=== PATIENT | male | born 1990 | race Two or more races ===

== ENCOUNTER 2018-11-05 12:04 | Inpatient (IN) | payer MEDICAID ==
--- NOTE | 2018-11-05 12:35 | ED Physician Chart ---
ED Chief Complaint/HPI - Patient Information Date Seen:: 11/05/18 Time Seen:: 12:16 Chief Complaint:: right inquinal pain History of Present Illness:: this is a 28 yo male who was working at home and while doing some heavy lifting he got sudden right inquinal pain. he denies nausea, vomiting and diarrhea. he denies any medical problems or previous surgeries. Allergies:: Allergies Allergy/AdvReac Type Severity Reaction Status Date / Time No Known Allergies Allergy Verified 11/05/18 12:10 Vitals:: Vital Signs - 8 hr 11/05/18 12:10 Temp 97.8 F HR 54 RR 16 BP 127/64 O2 Sat % 98 Historian:: Patient Review:: Nurse's Note Reviewed ED Review of Systems - Review of Systems General/Constitutional: No fever, No chills, No weight loss, No weakness, No diaphoresis, No edema, No loss of appetite Skin: No skin lesions, No rash, No bruising Head: No headache, No light-headedness Eyes: No loss of vision, No pain, No diplopia ENT: No earache, No nasal drainage, No sore throat, No tinnitus Neck: No neck pain, No swelling, No thyromegaly, No stiffness, No mass noted Cardio Vascular: No chest pain, No palpitations, No PND, No orthopnea, No edema Pulmonary: No SOB, No cough, No sputum, No wheezing GI: No nausea, No vomiting, No diarrhea, Pain (right inquinal area pain), No melena, No hematochezia, No constipation, No hematemesis G/U: No dysuria, No frequency, No hematuria Musculoskeletal: No bone or joint pain, No back pain, No muscle pain Endocrine: No polyuria, No polydipsia Psychiatric: No prior psych history, No depression, No anxiety, No suicidal ideation Hematopoietic: No bruising, No lymphadenopathy Allergic/Immuno: No urticaria, No angioedema Neurological: No syncope, No focal symptoms, No weakness, No paresthesia, No headache, No seizure, No dizziness, No confusion, No vertigo ED Past Medical History - Past Medical History Obtainable: Yes Past Medical History: No significant medical hx Family History: None Social History: Non Smoker, No Alcohol, No Drug Use, Employed Surgical History: None Psychiatricy History: None Medication: Reviewed ED Physical Exam - Physical Examination General/Constitutional: Awake, Well-developed, well-nourished, Alert, No distress, GCS 15, Non-toxic appearing, Ambulatory Head: Atraumatic Eyes: Lids, conjuctiva normal, PERRL, EOMI Skin: Nl inspection, No rash, No skin lesions, No ecchymosis, Well hydrated, No lymphadenopathy ENMT: External ears, nose nl, Nasal exam nl, Lips, teeth, gums nl Neck: Nontender, Full ROM w/o pain, No JVD, No nuchal rigidity, No bruit, No mass, No stridor Respiratory: Nl effort/Exclusion, Clear to Auscultation, No Wheeze/Rhonchi/Rales Cardio Vascular: RRR, No murmur, gallop, rubs, NL S1 S2 GI: No tenderness/rebounding/guarding, No organomegaly, Normal BS's, Nondistended, No mass/bruits, No McBurney tenderness Other GI comments:: right inquinal hernia non reducible and tender. : No CVA tenderness Extremities: No tenderness or effusion, Full ROM, normal strength in all extremities, No edema, Normal digits & nails Neuro/Psych: Alert/oriented, DTR's symmetric, Normal sensory exam, Normal motor strength, Judgement/insight normal, Mood normal, Normal gait, No focal deficits Misc: Normal back, No paraspinal tenderness ED Labs/Radiology/EKG Results - Lab Results Results: Abnormal Lab Results 11/05/18 11/05/18 11/05/18 12:53 12:53 12:53 WBC 12.6 H RBC 5.14 Hgb 15.6 Hct 46.6 MCV 90.8 MCH 30.3 H MCHC Differential 33.3 RDW 12.7 Plt Count 257 MPV 7.9 Neutrophils % 83.1 H Lymphocytes % 11.0 L Monocytes % 5.2 Eosinophils % 0.5 Basophils % 0.2 PT 12.1 H INR 1.17 PTT (Actin FS) 24.0 L Sodium 138 Potassium 3.8 Chloride 103 Carbon Dioxide 26.1 Anion Gap 12.7 BUN 11 Creatinine 0.8 Est GFR ( Amer) > 60.0 Est GFR (Non-Af Amer) > 60.0 BUN/Creatinine Ratio 13.8 Glucose 123 H Calcium 9.1 Total Bilirubin 1.1 H AST 22 ALT 19 Alkaline Phosphatase 73 Total Protein 7.0 Albumin 4.6 Globulin 2.4 Albumin/Globulin Ratio 1.9 H - Radiology Results Results: ct scan of abdomen = right inquinal hernia. ED Assessment - Assessment General Assessment: incarcerated right inquinal hernia ED Septic Shock - . Is Septic Shock (SBP<90, OR Lactate>4 mmol\L) present?: No - <6hrs of presentation: Vital Signs: Vital Signs - 8 hr 11/05/18 12:10 Temp 97.8 F HR 54 RR 16 BP 127/64 O2 Sat % 98 ED Reassessment (Disposition) - Reassessment Reassessment Condition:: Improved - Diagnosis Diagnosis:: incarcerated right inquinal hernia - Patient Disposition Discharge/Transfer:: Acute Care w/in this hosp Admitting Medical Physician:: Martin Estrada Condition at Disposition:: Improved
--- NOTE | 2018-11-05 12:49 | Diagnostic Imaging Report ---
CT scan of the abdomen and pelvis without intravenous contrast History: Right inguinal pain Total DLP equals 361 CTDI equals 6.9 Axial sections were obtained from the xiphoid process down to the pubic symphysis. The liver demonstrates a normal size and contour. No focal lesions are seen. The spleen appears normal. No abnormalities are seen in the region of the pancreas. The kidneys appear normal bilaterally. There is evidence for large amount of fecal content throughout the colon. The exam of the pelvis demonstrates preservation of normal fat planes. There is evidence for right inguinal hernia most likely with mesentery and small bowel loops. There is distention small bowel loops suggestive of mild ileus. Impression: Mild ileus. Right inguinal hernia extending into the right scrotum with mesentery and small bowel loops in the hernia sac Constipation.
[2018-11-05 13:01] LABS: % BASOPHILS 0.2 % (0.0-2.0); % EOSINOPHILS 0.5 % (0.0-5.0); % MONOCYTES 5.2 % (2.0-10.0); % NEUTROPHILS 83.1 % (40.0-80.0); EOSINOPHILE ABSOLUTE 0.1 Th/cmm (0.1-0.4); HEMATOCRIT 46.6 % (41.0-60); HEMOGLOBIN 15.6 gm/dL (12-16); LYMPHOCYTE ABSOLUTE 1.4 Th/cmm (1.5-3.0); MEAN CELL VOLUME 90.8 fl (80-99); MEAN CORPUSCULAR HEMOGLOBIN 30.3 pg (26.0-30.0); MEAN CORPUSCULAR HGB CONC 33.3 pg (28.0-36.0); MEAN PLATELET VOLUME 7.9 fl; MONOCYTE ABSOLUTE 0.7 Th/cmm (0.3-1.0); NEUTROPHILE ABSOLUTE 10.4 Th/cmm (1.8-8.0); PLATELET COUNT 257 Th/cmm (150-400); RED BLOOD COUNT 5.14 Mil/cmm (4.30-5.70); RED CELL DISTRIBUTION WIDTH 12.7 % (11.5-20.0); WHITE BLOOD COUNT 12.6 Th/cmm (4.8-10.8)
[2018-11-05 13:15] LABS: ALB/GLOB RATIO 1.9 (1.0-1.8); ALBUMIN 4.6 gm/dL (4.2-5.5); ALKALINE PHOSPHATASE 73 U/L (34-104); ANION GAP 12.7 (7.0-16.0); BILIRUBIN,TOTAL 1.1 mg/dL (0.3-1.0); BUN - UREA NITROGEN 11 mg/dL (7-25); CALCIUM SERUM 9.1 mg/dL (8.6-10.3); CARBON DIOXIDE 26.1 mEq/L (21.0-31.0); CHLORIDE 103 mEq/L (98-107); CREATININE - SERUM 0.8 mg/dL (0.7-1.3); GFR AFRICAN-AMERICAN > 60.0 ml/min (>90); GFR NON AFRICAN-AMERICAN > 60.0 ml/min; GLUCOSE 123 mg/dL (70-105); POTASSIUM SERUM 3.8 mEq/L (3.5-5.1); SGOT 22 U/L (13-39); SGPT/ALT 19 U/L (7-52); SODIUM SERUM 138 mEq/L (136-145)
[2018-11-05 13:16] LABS: INR 1.17 (0.5-1.4); PROTHROMBIN TIME (TEST) 12.1 SECONDS (9.5-11.5)
[2018-11-05] MEDS ORDERED: Sodium Chloride 0.9% 1,000 ML IV ONE (13:32)
[2018-11-05] MEDS ORDERED: HYDROmorphone 1 mg/mL 1mL Syr IVP STA (13:34)
[2018-11-05] MEDS ORDERED: HYDROmorphone 1 mg/mL 1mL Syr ONE (13:50)
[2018-11-05 14:06] LABS: URINE SOURCE CLEAN C
[2018-11-05 14:11] LABS: URINE BILIRUBIN NEGATIVE (NEGATIVE); URINE BLOOD NEGATIVE (NEGATIVE); URINE GLUCOSE (UA) NEGATIVE (NEGATIVE); URINE KETONE NEGATIVE (NEGATIVE); URINE LEUKOCYTE ESTERASE NEGATIVE (NEGATIVE); URINE NITRATE NEGATIVE (NEGATIVE); URINE PH 8.5 (4.6 - 8.0); URINE PROTEIN NEGATIVE (NEGATIVE); URINE UROBILINOGEN 0.2 E.U./dL (0.2 - 1.0)
[2018-11-05 14:16] LABS: URINE CLARITY CLEAR (CLEAR); URINE COLOR YELLOW; URINE MICROSCOPIC INDICATED? YES
[2018-11-05 14:48] LABS: URINE BACTERIA FEW /hpf (NONE SEEN); URINE EPITHELIAL CELLS FEW /lpf (FEW); URINE RBC 0-2 /hpf (0-5)
[2018-11-05 15:48] VITALS: BP 129/67
[2018-11-05] MEDS: Sodium Chloride 0.9% 1,000 ML IV SCH (15:55)
--- NOTE | 2018-11-05 17:34 | History and Physical ---
History of Present Illness - HPI Chief Complaint: Right inguinal and testicular pain HPI: Patient refer that 2 years ago he new that he had an right inguinal hernia, but never cause pain. Today while he was working he felt a sharp pain in right inguinal area and came to ER. Abdominal CT showed Mild ileus and inguinal hernia with some intestines in right testicle. 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 Hx GI: Report: No Pertinent Hx Psych: Report: No Pertinent Hx Musculoskeletal: Report: No Pertinent Hx Rheumatologic: Report: No pertinent Hx Infectious Disease: Report: No Pertinent Hx Renal/: Report: No Pertinent Hx Endocrine: Report: No Pertinent Hx Dermatology: Report: No Pertinent Hx - Past Surgical History Past Surgical History: Other (Hx of right inguinal hernia) Family Medical History - Family Member Mother History Unknown: Yes Social History Smoke: No Alcohol: Occassional Drugs: None Lives: With Family Domestic Violence: Negative - Medications Home Medications: Home Medication Medication Instructions Recorded Type NK [No Home Meds] 11/05/18 History - Allergies Allergies/Adverse Reactions: Allergies Allergy/AdvReac Type Severity Reaction Status Date / Time No Known Allergies Allergy Verified 11/05/18 12:10 Review of Systems - Review of Systems Constitutional: Report: No Significant Eyes: Report: No Significant ENT: Report: No Significant Respiratory: Report: No Significant Cardiovascular: Report: No Significant Gastrointestinal: Report: Abdominal Pain Genitourinary: Report: Other (Pain in right testicle) Musculoskeletal: Report: No Significant Skin: Report: No Significant Neurological: Report: No Significant Physical Exam - Physical Exam HEENT: Report: Ears Nose Throat within normal limits Neck: Report: Within normal limits Cardiovascular Systems: Report: Regular, Rate and Rhythm Respiratory: Report: Breath Sounds are within normal limits Abdomen: Report: Non-tender to palpation, Other (Pain at palpation in right inguinal area) Back: Report: Inspection of back is within normal limits. Extremities: Report: Non-tender to palpation. Skin: Report: Color of skin is within normal limits Neuro/Psych: Report: Mood affect is within normal limits - Lab Results All Lab Results last 24 hours: Laboratory Results - last 24 hr 11/05/18 11/05/18 11/05/18 12:53 12:53 12:53 WBC 12.6 H RBC 5.14 Hgb 15.6 Hct 46.6 MCV 90.8 MCH 30.3 H MCHC Differential 33.3 RDW 12.7 Plt Count 257 MPV 7.9 Neutrophils % 83.1 H Lymphocytes % 11.0 L Monocytes % 5.2 Eosinophils % 0.5 Basophils % 0.2 PT 12.1 H INR 1.17 PTT (Actin FS) 24.0 L Sodium 138 Potassium 3.8 Chloride 103 Carbon Dioxide 26.1 Anion Gap 12.7 BUN 11 Creatinine 0.8 Est GFR ( Amer) > 60.0 Est GFR (Non-Af Amer) > 60.0 BUN/Creatinine Ratio 13.8 Glucose 123 H Calcium 9.1 Total Bilirubin 1.1 H AST 22 ALT 19 Alkaline Phosphatase 73 Total Protein 7.0 Albumin 4.6 Globulin 2.4 Albumin/Globulin Ratio 1.9 H TSH Urine Source Urine Color Urine Clarity Urine pH Ur Specific [place] Urine Protein Urine Glucose (UA) Urine Ketones Urine Blood Urine Nitrate Urine Bilirubin Urine Urobilinogen Ur Leukocyte Esterase Urine RBC Urine WBC Ur Epithelial Cells Urine Bacteria Urine Mucus 11/05/18 11/05/18 12:53 13:50 WBC RBC Hgb Hct MCV MCH MCHC Differential RDW Plt Count MPV Neutrophils % Lymphocytes % Monocytes % Eosinophils % Basophils % PT INR PTT (Actin FS) Sodium Potassium Chloride Carbon Dioxide Anion Gap BUN Creatinine Est GFR ( Amer) Est GFR (Non-Af Amer) BUN/Creatinine Ratio Glucose Calcium Total Bilirubin AST ALT Alkaline Phosphatase Total Protein Albumin Globulin Albumin/Globulin Ratio TSH 1.90 Urine Source CLEAN C Urine Color YELLOW Urine Clarity CLEAR Urine pH 8.5 Ur Specific [place] 1.010 Urine Protein NEGATIVE Urine Glucose (UA) NEGATIVE Urine Ketones NEGATIVE Urine Blood NEGATIVE Urine Nitrate NEGATIVE Urine Bilirubin NEGATIVE Urine Urobilinogen 0.2 Ur Leukocyte Esterase NEGATIVE Urine RBC 0-2 H Urine WBC 2-5 Ur Epithelial Cells FEW Urine Bacteria FEW Urine Mucus FEW - Assessment Assessment: Current Active Problems Problem Status Onset RIGHT LOWER QUADRANT PAIN Acute Patient is awake, alert, calm, in no acute distress. Dx: Right inguinal hernia - Plan Plan: Patient in IV NS, Pain control, NPO. Already was seen by surgery. Surgery will be done today. Will continue to monitor
[2018-11-05] MEDS ORDERED: Bupivacaine 0.25% W/Ep 10 mL Vial INJ ONE (18:50)
[2018-11-05] MEDS ORDERED: Bupivacaine 0.5% W/Ep 10 mL Vial INJ ONE (18:50)
[2018-11-05] MEDS ORDERED: fentaNYL Citrate 100 mcg/2mL Vial ONE (19:15)
[2018-11-05] MEDS ORDERED: Propofol **SURGERY USE ONLY** 20 ML IV ONE (19:24)
[2018-11-05] MEDS ORDERED: Neostigmine 10mg/10mL Vial ONE (19:25)
--- NOTE | 2018-11-05 20:19 | Consultation ---
Consult Note - Consult Note Service Date: 11/05/18 Referring Physician: Martin Estrada Consult Note: PHYSICIAN Consultation Note: Date of Admission: 11/05/18 Purpose of Consultation: incarcerated right inguinal hernia Chief Complaint: intense pain and bulging from the right groin at work today History of Present Illness: Patient VENICE RESENDEZ was admitted to [facility] with INCARCERATED INGUINAL HERNIA. Past Medical History: Allergies Allergy/AdvReac Type Severity Reaction Status Date / Time No Known Allergies Allergy Verified 11/05/18 12:10 Vital Signs Temp 97.3 F 11/05/18 16:20 Pulse 62 11/05/18 16:20 Resp 16 11/05/18 16:20 BP 129/67 11/05/18 16:20 Pulse Ox 100 11/05/18 16:20 Intake & Output 11/05/18 11/05/18 11/06/18 06:59 18:59 06:59 Intake Total 349.65 Balance 349.65 Weight (lbs) 148 lb Intake: Intake, IV Amount 349.65 Sodium Chloride 0.9% 1, 349.65 000 ml @ Wide Open IV . Q0M ONE Rx#:[id number] Other: # Voids 2 # Bowel Movements 0 Weight Source Bedscale Laboratory Results - last 24 hr 11/05/18 11/05/18 11/05/18 12:53 12:53 12:53 WBC 12.6 H RBC 5.14 Hgb 15.6 Hct 46.6 MCV 90.8 MCH 30.3 H MCHC Differential 33.3 RDW 12.7 Plt Count 257 MPV 7.9 Neutrophils % 83.1 H Lymphocytes % 11.0 L Monocytes % 5.2 Eosinophils % 0.5 Basophils % 0.2 PT 12.1 H INR 1.17 PTT (Actin FS) 24.0 L Sodium 138 Potassium 3.8 Chloride 103 Carbon Dioxide 26.1 Anion Gap 12.7 BUN 11 Creatinine 0.8 Est GFR ( Amer) > 60.0 Est GFR (Non-Af Amer) > 60.0 BUN/Creatinine Ratio 13.8 Glucose 123 H Calcium 9.1 Total Bilirubin 1.1 H AST 22 ALT 19 Alkaline Phosphatase 73 Total Protein 7.0 Albumin 4.6 Globulin 2.4 Albumin/Globulin Ratio 1.9 H TSH Urine Source Urine Color Urine Clarity Urine pH Ur Specific [place] Urine Protein Urine Glucose (UA) Urine Ketones Urine Blood Urine Nitrate Urine Bilirubin Urine Urobilinogen Ur Leukocyte Esterase Urine RBC Urine WBC Ur Epithelial Cells Urine Bacteria Urine Mucus 11/05/18 11/05/18 12:53 13:50 WBC RBC Hgb Hct MCV MCH MCHC Differential RDW Plt Count MPV Neutrophils % Lymphocytes % Monocytes % Eosinophils % Basophils % PT INR PTT (Actin FS) Sodium Potassium Chloride Carbon Dioxide Anion Gap BUN Creatinine Est GFR ( Amer) Est GFR (Non-Af Amer) BUN/Creatinine Ratio Glucose Calcium Total Bilirubin AST ALT Alkaline Phosphatase Total Protein Albumin Globulin Albumin/Globulin Ratio TSH 1.90 Urine Source CLEAN C Urine Color YELLOW Urine Clarity CLEAR Urine pH 8.5 Ur Specific [place] 1.010 Urine Protein NEGATIVE Urine Glucose (UA) NEGATIVE Urine Ketones NEGATIVE Urine Blood NEGATIVE Urine Nitrate NEGATIVE Urine Bilirubin NEGATIVE Urine Urobilinogen 0.2 Ur Leukocyte Esterase NEGATIVE Urine RBC 0-2 H Urine WBC 2-5 Ur Epithelial Cells FEW Urine Bacteria FEW Urine Mucus FEW Home Medication Medication Instructions Recorded Type NK [No Home Meds] 11/05/18 History Current Medications Generic Name Dose Route Start Last Admin Trade Name Freq PRN Reason Stop Dose Admin Hydromorphone HCl 1 mg 11/05/18 14:46 Dilaudid IVP 01/04/19 14:45 Q6HR PRN Pain (Severe) Sodium Chloride 1,000 mls @ 75 mls/hr 11/05/18 15:29 11/05/18 15:55 Nacl 0.9% IV 01/04/19 15:28 75 mls/hr .[id number] DAYNA Administration Review of Systems: A 12 point ROS was reviewed with the pertinent positive and negatives noted in the HPI. Social History Smoking Status Never smoker Family Medical History Family Medical History Start: 11/05/18 14: 49 Freq: ONCE Status: Active Protocol: Document 11/05/18 14:49 ELTON (Rec: 11/05/18 15:34 ELTON AHSAN-WOW -MS6) Family Medical History Mother History Unknown Yes Physical Exam: General: HEENT: Neck: Cardio: Respiratory: Abdominal: pain in the right groin with swelling Genital/Urinary: Extremities: Neurological: Assessment: incarcerated right inguinal hernia Plan: Repair of incarcerated ingruinal hernia on the right side Signed, Sasha Forde 6
--- NOTE | 2018-11-05 20:46 | Operative Report ---
DATE OF SURGERY: PREOPERATIVE DIAGNOSIS: A 28-year-old presents with acute incarcerated right Inguinal hernia. POSTOPERATIVE DIAGNOSIS: Reduced right inguinal hernia. PROCEDURE: Repair of reducible right inguinal hernia with medium PerFix plug from [employer]. ANESTHESIA: This was done under general anesthesia with Dr. Castro. DESCRIPTION OF PROCEDURE: Under general anesthesia, the patient was prepped and draped in usual sterile fashion. Incision was made with paralleling the inguinal ligament and brought down to the external oblique fascia. The spermatic cord was protected and the hernia sac was from the spermatic cord ligated high. The medium PerFix plug was placed in the triangle of Hesselbach and secured to the conjoined tendon and reflected edge of Poupart's ligament. We then placed a patch over that repair, secured there with 2-0 Prolene suture, and then the 2-0 Vicryl was used for the Stephanie's fascia. We made sure there was a little bit of lucency at the level of the spermatic cord, so that it would not be too tight and we then closed the skin with 4-0 Vicryl subcuticular stitch. Steri-Strip and benzoin was applied. A 20 mL of Marcaine 0.25% with epinephrine was used, 10 mL preoperatively and 10 mL postop at the end of the procedure. The patient tolerated the procedure well. All instrument, sponge count were correct. JOB# [id number]
[2018-11-06] MEDS: HYDROmorphone 1 mg/mL 1mL Syr IVP PRN ×2 (01:33→10:21)
[2018-11-06] MEDS ORDERED: HYDROmorphone 1 mg/mL 1mL Syr IVP ONE (05:00)
[2018-11-06] MEDS: Sodium Chloride 0.9% 1,000 ML IV SCH ×2 (06:42→23:04)
[2018-11-06] MEDS: APAP/Oxycodone 5/325mg Tab PO PRN ×2 (08:40→20:48)
--- NOTE | 2018-11-06 09:43 | General Progress Note ---
Subjective - Review of Systems Service Date: 11/06/18 Subjective: I have pain Objective - Results Result Diagrams: 11/05/18 12:53 11/05/18 12:53 Recent Labs: Laboratory Last Values WBC 12.6 Th/cmm (4.8-10.8) H 11/05/18 12:53 RBC 5.14 Mil/cmm (4.30-5.70) 11/05/18 12:53 Hgb 15.6 gm/dL (12-16) 11/05/18 12:53 Hct 46.6 % (41.0-60) 11/05/18 12:53 MCV 90.8 fl (80-99) 11/05/18 12:53 MCH 30.3 pg (26.0-30.0) H 11/05/18 12:53 MCHC Differential 33.3 pg (28.0-36.0) 11/05/18 12:53 RDW 12.7 % (11.5-20.0) 11/05/18 12:53 Plt Count 257 Th/cmm (150-400) 11/05/18 12:53 MPV 7.9 fl 11/05/18 12:53 Neutrophils % 83.1 % (40.0-80.0) H 11/05/18 12:53 Lymphocytes % 11.0 % (20.0-50.0) L 11/05/18 12:53 Monocytes % 5.2 % (2.0-10.0) 11/05/18 12:53 Eosinophils % 0.5 % (0.0-5.0) 11/05/18 12:53 Basophils % 0.2 % (0.0-2.0) 11/05/18 12:53 PT 12.1 SECONDS (9.5-11.5) H 11/05/18 12:53 INR 1.17 (0.5-1.4) 11/05/18 12:53 PTT (Actin FS) 24.0 SECONDS (26.0-38.0) L 11/05/18 12:53 Sodium 138 mEq/L (136-145) 11/05/18 12:53 Potassium 3.8 mEq/L (3.5-5.1) 11/05/18 12:53 Chloride 103 mEq/L (98-107) 11/05/18 12:53 Carbon Dioxide 26.1 mEq/L (21.0-31.0) 11/05/18 12:53 Anion Gap 12.7 (7.0-16.0) 11/05/18 12:53 BUN 11 mg/dL (7-25) 11/05/18 12:53 Creatinine 0.8 mg/dL (0.7-1.3) 11/05/18 12:53 Est GFR ( Amer) > 60.0 ml/min (>90) 11/05/18 12:53 Est GFR (Non-Af Amer) > 60.0 ml/min 11/05/18 12:53 BUN/Creatinine Ratio 13.8 11/05/18 12:53 Glucose 123 mg/dL (70-105) H 11/05/18 12:53 Calcium 9.1 mg/dL (8.6-10.3) 11/05/18 12:53 Total Bilirubin 1.1 mg/dL (0.3-1.0) H 11/05/18 12:53 AST 22 U/L (13-39) 11/05/18 12:53 ALT 19 U/L (7-52) 11/05/18 12:53 Alkaline Phosphatase 73 U/L (34-104) 11/05/18 12:53 Total Protein 7.0 gm/dL (6.0-8.3) 11/05/18 12:53 Albumin 4.6 gm/dL (4.2-5.5) 11/05/18 12:53 Globulin 2.4 gm/dL 11/05/18 12:53 Albumin/Globulin Ratio 1.9 (1.0-1.8) H 11/05/18 12:53 TSH 1.90 uIU/ml (0.34-5.60) 11/05/18 12:53 Urine Source CLEAN C 11/05/18 13:50 Urine Color YELLOW 11/05/18 13:50 Urine Clarity CLEAR (CLEAR) 11/05/18 13:50 Urine pH 8.5 (4.6 - 8.0) 11/05/18 13:50 Ur Specific [place] 1.010 (1.005-1.030) 11/05/18 13:50 Urine Protein NEGATIVE mg/dL (NEGATIVE) 11/05/18 13:50 Urine Glucose (UA) NEGATIVE mg/dL (NEGATIVE) 11/05/18 13:50 Urine Ketones NEGATIVE mg/dL (NEGATIVE) 11/05/18 13:50 Urine Blood NEGATIVE (NEGATIVE) 11/05/18 13:50 Urine Nitrate NEGATIVE (NEGATIVE) 11/05/18 13:50 Urine Bilirubin NEGATIVE (NEGATIVE) 11/05/18 13:50 Urine Urobilinogen 0.2 E.U./dL (0.2 - 1.0) 11/05/18 13:50 Ur Leukocyte Esterase NEGATIVE (NEGATIVE) 11/05/18 13:50 Urine RBC 0-2 /hpf (0-5) H 11/05/18 13:50 Urine WBC 2-5 /hpf (0-5) 11/05/18 13:50 Ur Epithelial Cells FEW /lpf (FEW) 11/05/18 13:50 Urine Bacteria FEW /hpf (NONE SEEN) 11/05/18 13:50 Urine Mucus FEW /lpf (FEW) 11/05/18 13:50 - Physical Exam Vitals and I&O: Vital Signs Temp 98.6 F 11/06/18 08:00 Pulse 62 11/06/18 08:00 Resp 18 11/06/18 08:00 BP 98/54 11/06/18 08:00 Pulse Ox 97 11/06/18 08:00 Intake & Output 11/05/18 11/06/18 11/06/18 18:59 06:59 18:59 Intake Total 349.65 340 Output Total 400 Balance 349.65 -60 Weight (lbs) 67.132 kg 67.132 kg Intake: Intake, IV Amount 349.65 Sodium Chloride 0.9% 1, 349.65 000 ml @ Wide Open IV . Q0M ONE Rx#:[id number] Oral 340 Output: Urine 400 Other: # Voids 2 # Bowel Movements 0 0 Weight Source Bedscale Bedscale Active Medications: Current Medications Hydromorphone HCl (Dilaudid) 1 mg IVP Q6HR PRN PRN Reason: Pain (Severe) Stop: 01/04/19 14:45 Last Admin: 11/06/18 01:33 Dose: 1 mg Sodium Chloride (Nacl 0.9%) 1,000 mls @ 75 mls/hr IV .[id number] DAYNA Stop: 01/04/19 15:28 Last Admin: 11/06/18 06:42 Dose: Not Given Ondansetron HCl (Zofran) 4 mg IV Q6H PRN PRN Reason: Nausea / Vomiting Stop: 01/05/19 04:39 Oxycodone/Acetaminophen (Percocet 5/325mg Oral Tab) 1 tab PO Q4H PRN PRN Reason: MODERATE PAIN Stop: 01/05/19 04:37 Last Admin: 11/06/18 08:40 Dose: 1 tab General: Alert, Oriented x3, Cooperative, Mild distress HEENT: Atraumatic Neck: Supple Cardiovascular: Regular rate Lungs: Clear to auscultation Abdomen: Bowel sounds, Distended, Other (Pain in rigth lower abdomen, surgical wound clean) Extremities: Other (No edema) Neurological: Normal gait Skin: Other (Warm and dry) Psych/Mental Status: Mental status NL Assessment/Plan - Problem List Patient Problems: All Active Problems RIGHT LOWER QUADRANT PAIN (Acute) - Assessment Assessment: Current Active Problems Problem Status Onset RIGHT LOWER QUADRANT PAIN Acute Patient is awake, alert, calm, in some distress due to pain. Patient is passing was. Dx: S/P Right inguinal hernia - Plan Plan: Patient in IV NS, Pain control, liquid diet, Surgery was done. Will continue to monitor
[2018-11-06 10:08] LABS: % BASOPHILS 0.3 % (0.0-2.0); % EOSINOPHILS 0.8 % (0.0-5.0); % LYMPHOCYTES 13.4 % (20.0-50.0); % MONOCYTES 8.6 % (2.0-10.0); % NEUTROPHILS 76.9 % (40.0-80.0); EOSINOPHILE ABSOLUTE 0.1 Th/cmm (0.1-0.4); HEMATOCRIT 42.4 % (41.0-60); HEMOGLOBIN 14.1 gm/dL (12-16); LYMPHOCYTE ABSOLUTE 1.4 Th/cmm (1.5-3.0); MEAN CELL VOLUME 91.4 fl (80-99); MEAN CORPUSCULAR HEMOGLOBIN 30.3 pg (26.0-30.0); MEAN CORPUSCULAR HGB CONC 33.2 pg (28.0-36.0); MEAN PLATELET VOLUME 8.3 fl; MONOCYTE ABSOLUTE 0.9 Th/cmm (0.3-1.0); PLATELET COUNT 243 Th/cmm (150-400); RED BLOOD COUNT 4.63 Mil/cmm (4.30-5.70); RED CELL DISTRIBUTION WIDTH 12.9 % (11.5-20.0); WHITE BLOOD COUNT 10.4 Th/cmm (4.8-10.8)
[2018-11-06 10:15] LABS: ALB/GLOB RATIO 1.9 (1.0-1.8); ALBUMIN 3.7 gm/dL (4.2-5.5); ALKALINE PHOSPHATASE 62 U/L (34-104); ANION GAP 10.2 (7.0-16.0); BILIRUBIN,TOTAL 1.9 mg/dL (0.3-1.0); BUN - UREA NITROGEN 11 mg/dL (7-25); CALCIUM SERUM 8.5 mg/dL (8.6-10.3); CARBON DIOXIDE 26.3 mEq/L (21.0-31.0); CHLORIDE 104 mEq/L (98-107); CREATININE - SERUM 0.8 mg/dL (0.7-1.3); GFR AFRICAN-AMERICAN > 60.0 ml/min (>90); GFR NON AFRICAN-AMERICAN > 60.0 ml/min; GLUCOSE 105 mg/dL (70-105); POTASSIUM SERUM 3.5 mEq/L (3.5-5.1); SGOT 21 U/L (13-39); SGPT/ALT 14 U/L (7-52); SODIUM SERUM 137 mEq/L (136-145); TOTAL PROTEIN,SERUM 5.7 gm/dL (6.0-8.3)
[2018-11-06] MEDS ORDERED: Magnesium Hydroxide (MOM) 30 mL UDC PO SCH (21:00)
[2018-11-07] MEDS: APAP/Oxycodone 5/325mg Tab PO PRN ×2 (00:22→13:41)
[2018-11-07 06:55] LABS: % BASOPHILS 0.5 % (0.0-2.0); % EOSINOPHILS 2.1 % (0.0-5.0); % LYMPHOCYTES 21.5 % (20.0-50.0); % NEUTROPHILS 65.9 % (40.0-80.0); EOSINOPHILE ABSOLUTE 0.2 Th/cmm (0.1-0.4); HEMATOCRIT 43.5 % (41.0-60); HEMOGLOBIN 14.5 gm/dL (12-16); MEAN CELL VOLUME 91.5 fl (80-99); MEAN CORPUSCULAR HEMOGLOBIN 30.6 pg (26.0-30.0); MEAN CORPUSCULAR HGB CONC 33.4 pg (28.0-36.0); MEAN PLATELET VOLUME 8.7 fl; MONOCYTE ABSOLUTE 0.9 Th/cmm (0.3-1.0); NEUTROPHILE ABSOLUTE 6.1 Th/cmm (1.8-8.0); PLATELET COUNT 232 Th/cmm (150-400); RED BLOOD COUNT 4.76 Mil/cmm (4.30-5.70); RED CELL DISTRIBUTION WIDTH 12.6 % (11.5-20.0); WHITE BLOOD COUNT 9.2 Th/cmm (4.8-10.8)
[2018-11-07 06:56] LABS: ALB/GLOB RATIO 1.8 (1.0-1.8); ALBUMIN 3.7 gm/dL (4.2-5.5); ALKALINE PHOSPHATASE 58 U/L (34-104); ANION GAP 8.1 (7.0-16.0); BILIRUBIN,TOTAL 1.7 mg/dL (0.3-1.0); BUN - UREA NITROGEN 10 mg/dL (7-25); CALCIUM SERUM 8.7 mg/dL (8.6-10.3); CHLORIDE 106 mEq/L (98-107); CREATININE - SERUM 0.9 mg/dL (0.7-1.3); GFR AFRICAN-AMERICAN > 60.0 ml/min (>90); GFR NON AFRICAN-AMERICAN > 60.0 ml/min; GLUCOSE 89 mg/dL (70-105); POTASSIUM SERUM 4.1 mEq/L (3.5-5.1); SGOT 21 U/L (13-39); SGPT/ALT 14 U/L (7-52); SODIUM SERUM 140 mEq/L (136-145); TOTAL PROTEIN,SERUM 5.8 gm/dL (6.0-8.3)
[2018-11-07] MEDS: HYDROmorphone 1 mg/mL 1mL Syr IVP PRN (10:12)
[2018-11-07] MEDS: Sodium Chloride 0.9% 1,000 ML IV SCH (10:23)
--- NOTE | 2018-11-07 13:22 | Discharge Summary ---
General Discharge Summary - Discharge Summary Date of Admission: 11/05/18 Admitting Diagnosis: Right inguinal hernia Patient Problems: All Active Problems RIGHT LOWER QUADRANT PAIN (Acute) Discharge Date: 11/07/18 Laboratory Findings: Laboratory Results - last 24 hr 11/07/18 11/07/18 05:50 05:50 WBC 9.2 RBC 4.76 Hgb 14.5 Hct 43.5 MCV 91.5 MCH 30.6 H MCHC Differential 33.4 RDW 12.6 Plt Count 232 MPV 8.7 Neutrophils % 65.9 Lymphocytes % 21.5 Monocytes % 10.0 Eosinophils % 2.1 Basophils % 0.5 Sodium 140 Potassium 4.1 Chloride 106 Carbon Dioxide 30.0 Anion Gap 8.1 BUN 10 Creatinine 0.9 Est GFR ( Amer) > 60.0 Est GFR (Non-Af Amer) > 60.0 BUN/Creatinine Ratio 11.1 Glucose 89 Calcium 8.7 Total Bilirubin 1.7 H AST 21 ALT 14 Alkaline Phosphatase 58 Total Protein 5.8 L Albumin 3.7 L Globulin 2.1 Albumin/Globulin Ratio 1.8 Hospital Course: Patient responded to treatment, after surgery he felt much better. Treatment: Patient was started in IV NS, Pain control, and surgery was done. Condition at Discharge: Stable Disposition: PT DISCHARGED HOME Home Medications: Home Medication Medication Instructions Recorded Type NK [No Home Meds] 11/05/18 History Inpatient Medications: Current Medications Hydromorphone HCl (Dilaudid) 1 mg IVP Q6HR PRN PRN Reason: Pain (Severe) Stop: 01/04/19 14:45 Last Admin: 11/07/18 10:12 Dose: 1 mg Sodium Chloride (Nacl 0.9%) 1,000 mls @ 75 mls/hr IV .[id number] DAYNA Stop: 01/04/19 15:28 Last Admin: 11/07/18 10:23 Dose: 75 mls/hr Ketorolac Tromethamine (Toradol) 30 mg IVP Q6HR PRN PRN Reason: mild pain Stop: 11/11/18 11:57 Last Admin: 11/06/18 15:04 Dose: 30 mg Magnesium Hydroxide (Milk Of Magnesia) 30 ml PO HS DAYNA Stop: 01/05/19 20:59 Last Admin: 11/06/18 20:49 Dose: 30 ml Ondansetron HCl (Zofran) 4 mg IV Q6H PRN PRN Reason: Nausea / Vomiting Stop: 01/05/19 04:39 Oxycodone/Acetaminophen (Percocet 5/325mg Oral Tab) 1 tab PO Q4H PRN PRN Reason: MODERATE PAIN Stop: 01/05/19 04:37 Last Admin: 11/07/18 00:22 Dose: 1 tab Activity: As Tolerated Discharge Diet: Regular Consults and Follow-Up: NO,PCP PER PATIENT [Other] Martin Estrada [Primary Care Provider] - Consulting Speciality: Surgery Instructions: Inguinal Hernia, Child, Care After
--- NOTE | 2018-11-09 15:15 | Pathology Report ---
[id number] Collection Date: 11/05/2018 Surgeon: Dr. Joan Forde Specimen Description: Hernia sac. Gross Description: Received in formalin is a 3 x 1.2 x 0.3 cm portion of loya-nichols fibromembranous connective tissue. Sectioning shows a glistening shinny surface on one side with no focal lesions appreciated. Associate Medical Director sections are submitted in one cassette. Microscopic Description: The histologic sections show fibromembranous connective tissue. Diagnosis: Consistent with hernia sac, right inguinal hernia. JOB# [id number]
== END 2018-11-07 14:49 | disposition home or self-care (01) | DRG 228 ==
LOC: ER 12:04 → MSI 14:47
PROVIDERS: ADMIT General Practice; ATTEND General Practice
PROC: 0YQ50ZZ Repair Right Inguinal Region, Open Approach (ICD-10-PCS; principal; 2018-11-05)
DX: K40.30 Unilateral inguinal hernia, with obstruction, without gangrene, not specified as recurrent (principal)
CPT/HCPCS: 36415-UA; 80053-TC; 81001-TC; 84443-TC; 85025-TC; 85610-TC; 85730-TC; 90799; 96372; 96374; 96375; J0696; J1170; J1885; J2405; J2704; J2710; J3010; J7030; Q0162; X6258; Z7610